=== PATIENT | female | born 1955 | race Caucasian/White ===

== ENCOUNTER → 2024-03-12 08:48 | Outpatient (REF) | payer MEDICARE, OTHER, SELFPAY | LOC: WDC 08:48 | PROVIDERS: ATTENDING PHYSICIAN Family Medicine | DX: R92.2 Inconclusive mammogram (principal) | CPT/HCPCS: 76641 ==

== ENCOUNTER 2024-04-16 18:37 | Emergency (ER) | payer MEDICARE, OTHER, SELFPAY ==
[2024-04-16 18:39] VITALS: BP 202/90
[2024-04-16 19:04] LABS: % Basophils 1.2 % (0-2); % Eosinophils 4.8 % (0-6); % Immature Granulocytes 0.2 % (0-0.5); % Lymphocytes 45.3 % (20.5-51.1); % Monocytes 9.9 % (1.7-9.3); % Neutrophils 38.6 % (42.2-75.2); Absolute Basophils 0.1 10^3/uL (0-0.2); Absolute Eosinophils 0.4 10^3/uL (0-0.7); Absolute Lymphocytes 3.8 10^3/uL (1.2-3.4); Absolute Monocytes 0.8 10^3/uL (0.1-0.6); Absolute Neutrophils 3.2 10^3/uL (1.4-6.5); Hematocrit 49.2 % (37.0-47.0); Mean Corp Hgb Conc. 32.5 g/dL (33.0-37.0); Mean Corpuscular Hgb 26.2 pg (27.0-31.0); Mean Corpuscular Volume 80.5 fL (81.0-99.0); Mean Platelet Volume 11.8 fL (7.4-10.4); Nucleated Red Blood Cells % 0 %; Platelet Count 219 10^3/uL (130-400); Red Blood Cell Count 6.11 10^6/uL (4.20-5.40); Red Cell Dist. Width 13.4 % (11.5-14.5); White Blood Cell Count 8.3 10^3/uL (4.8-10.8)
[2024-04-16 19:28] LABS: ALT (SGPT) 28 U/L (0-35); AST (SGOT) 45 U/L (14-36); Albumin 5.3 g/dl (3.5-5.0); Alkaline Phosphatase 66 U/L (38-126); Blood Urea Nitrogen 25 mg/dl (7-17); Calcium 10.3 mg/dl (8.4-10.2); Carbon Dioxide 27 mmol/L (22-30); Chloride 102 mmol/L (98-107); Glucose 100 mg/dl (70-99); Potassium 4.3 mmol/L (3.5-5.1); Sodium 144 mmol/L (135-145); Total Bilirubin 0.7 mg/dl (0.2-1.3); Total Protein 8.4 g/dl (6.3-8.2); eGFR > 60.00
[2024-04-16 19:38] LABS: Troponin I < 0.012 ng/ml
[2024-04-16 20:44] VITALS: BP 155/73
[2024-04-16 21:00] VITALS: BP 144/73
[2024-04-16 21:24] VITALS: BMI 28.2
[2024-04-16 22:00] VITALS: BP 138/65
--- NOTE | 2024-04-16 22:41 | ED.GENMED ---
History of Present Illness
General
Chief Complaint: Heart Rate Problem
Source: patient and spouse
Exam Limitations: none
Time Seen by Provider: 04/16/24 21:34
Nursing documentation reviewed up to this point in time: agreed with
History of Present Illness
History of Present Illness:
Patient is a 68-year-old female with history hyperlipidemia presenting to the emergency department for evaluation of palpitations and associated shortness of breath. Patient states that she was walking in the grocery store around 530 tonight when
she felt a pressure in her mid chest. She states that she 'just did not feel'. She does endorse some associated shortness of breath. Patient denies any headache, dizziness/lightheadedness, back pain, numbness/tingling lower extremities, or
weakness. Patient checked her 'monitor 'at home which stated that she was in an irregular heartbeat. She came to the emergency department for further evaluation.
By my initial evaluation patient states that she is feeling back to her baseline. She is currently asymptomatic and denies any current complaints. No longer describes any chest pain, shortness of breath. Patient states symptoms lasted about 3
hours tonight.
Patient states that she had 1 very similar episode in February which resolved on its own within 4 hours. Her primary care was aware of this instance for she had a normal EKG.
Patient has never seen a manager of environmental services
Review of Systems
Review of Systems
Allergies reviewed?: Yes
All Other Systems: ROS reviewed and negative except as documented in HPI and ROS
Phy Exam
Physical Exam
Physical Exam:
Vitals: Hypertensive, tachycardic on arrival although normalized by my initial evaluation
General: Patient is well appearing, no acute distress. Nontoxic-appearing
Skin: Warm and dry, no rashes or lesions
Head: Normocephalic, atraumatic
Eyes: Sclera nonicteric. EOMs intact. No nystagmus.
Throat: Protecting airway.
Neck: Normal ROM, no cervical spine tenderness, no meningismus. No JVD
Cardiac: Regular rate and rhythm, no murmurs. Palpable and equal distal pulses in bilateral upper and lower extremities.
Pulm: Normal respiratory effort, no wheezes, rales, rhonchi heard on exam. In no apparent respiratory stress. Oxygen saturation 98 on room air
Abdomen: Nondistended.
Extremities: No pitting edema bilateral lower extremities. Great distal pulses in bilateral lower extremities.
Neuro: AAOx3. No focal neurologic deficits. Speech fluid.
Psychiatric: Normal affect.
Scores
[id number] Score for Afib Stroke Risk
Age in Years (65=0, 65-74=1, >/=75=2): 65-74
Sex (Female=+1): Female
Congestive Heart Failure History (Yes=+1): No
Hypertension History (Yes=+1): Yes
Stroke/TIA/Thromboembolism History (Yes=+2): No
Vascular Disease History (Yes=+1): No
Diabetes Mellitus (Yes=+1): No
Score: 3
Anticoagulation Recommendations: Recommend anticoagulation (as validated in nonvalvular fib)
Course
Orders/Labs/Results
Orders:
Orders
04/16/24 18:38
ECG [Electrocardiogram (*1)] Urgent
Reason for Study: Tachycardia
Electrocardiogram (*1) Urgent
Reason for Study: Shortness of Breath
EKG- Treatment ONCE
04/16/24 18:39
EKG- Treatment ONCE
04/16/24 18:54
TSH Reflex To Free T4 Urgent
Comment: ADD ON
04/16/24 18:56
Complete Blood Count/With Diff Urgent
Comprehensive Metabolic Panel Urgent
Troponin I Urgent
04/16/24 22:27
Add On- LAB Urgent
Tests Added?: TSH w/ reflex to T4
Electrocardiogram (*1) Urgent
Reason for Study: Palpitations
EKG- Treatment ONCE
04/16/24 23:22
Apixaban [Eliquis] 5 mg PO NOW STA
Metoprolol Xl [Toprol Xl] 25 mg PO NOW STA
04/16/24 23:38
Metoprolol Xl [Toprol Xl] 12.5 mg PO NOW STA
Abnormal Lab Results
04/16/24
18:56
RBC 6.11 H 10^6/uL
(4.20-5.40)
Hct 49.2 H %
(37.0-47.0)
MCV 80.5 L fL
(81.0-99.0)
MCH 26.2 L pg
(27.0-31.0)
MCHC 32.5 L g/dL
(33.0-37.0)
MPV 11.8 H fL
(7.4-10.4)
Absolute Lymphs (auto) 3.8 H 10^3/uL
(1.2-3.4)
Absolute Monos (auto) 0.8 H 10^3/uL
(0.1-0.6)
Neutrophils % 38.6 L %
(42.2-75.2)
Monocytes % 9.9 H %
(1.7-9.3)
BUN 25 H mg/dl
(7-17)
Glucose 100 H mg/dl
(70-99)
Calcium 10.3 H mg/dl
(8.4-10.2)
AST 45 H U/L
(14-36)
Total Protein 8.4 H g/dl
(6.3-8.2)
Albumin 5.3 H g/dl
(3.5-5.0)
04/16/24 18:56
04/16/24 18:56
Vital Signs
Initial and Last Documented VS:
Initial Vital Signs
Temp Pulse Resp BP Pulse Ox
98.1 F 139 16 202/90 98
04/16/24 18:39 04/16/24 18:39 04/16/24 18:39 04/16/24 18:39 04/16/24 18:39
Last Documented Vital Signs
Temp Pulse Resp BP Pulse Ox
98.1 F 61 16 140/66 98
04/16/24 18:39 04/16/24 23:47 04/16/24 23:15 04/16/24 23:47 04/16/24 18:39
MDM/Problems Addressed
Differential Diagnosis Includes:
Not limited to: Paroxysmal atrial fibrillation, other cardiac arrhythmia, hypothyroidism, doubt ACS
MDM/Problems Addressed:
68-year-old female presenting with acute onset chest discomfort, shortness of breath while in grocery store approximately 3 hours prior to arrival and found to be in atrial fibrillation with rapid ventricular response on arrival to emergency
department. Patient fortunately did convert back to normal sinus rhythm by my initial evaluation. She is asymptomatic at this time with no current complaints. Patient specifically denies any chest pain, shortness of breath,/lightheadedness,
headache, numbness/tingling/weakness in lower extremities. Patient with no known history of atrial fibrillation, not currently anticoagulated. Labs were obtained in triage which showed no acute abnormalities. Troponin was normal which was drawn
3.5 hours status post initial onset of symptoms�do not suspect ACS. Patient denies any chest discomfort at this time whatsoever.
Did repeat EKG which confirms normal sinus rhythm with a rate of 60bpm and no acute ischemic changes. A TSH was added on given patient's new onset atrial fibrillation which was normal. Patient has a [id number] score of 3�indicating
recommendation for anticoagulation. Lengthy discussion with patient and patient's regarding risk versus benefit of oral anticoagulation given paroxysmal atrial fibrillation. Utilize shared decision-making and will initiate oral
anticoagulation therapy today. Given patient's heart rate ranging in the 60s�will start very low-dose metoprolol 12.5 mg daily. Advised patient to hold medication with any low heart rate readings. Return precautions discussed at length with
patient. Patient has been placed on chest pain hotline and will follow close with cardiology. In addition�she will follow with primary care early next week. Patient and patient's comfortable with discharge. All questions answered. Case
discussed with attending physician.
Chronic conditions affecting care:
Hyperlipidemia
Acute Exacerbation and/or Progression of Chronic Illness:
Paroxysmal atrial fibrillation
*Pulse Oximetry
Patient hypoxic: no
*EKG
Interpreted by ED Provider?: Yes
EKG Intrepretation Date: 04/17/24
Interpretation: abnormal
Comparison EKG: changes noted
Heart Rate: 143
Rate: tachycardiac
Rhythm: a-fib
[place]: normal axis
Interval: normal interval
QRS Pattern: normal QRS
Ischemia: non-specific ST changes
*Special Education Assistant Interpretation
Rate: normal
Interpretation: normal
Heart Rate: 68
Rhythm: sinus
*Critical Care Note
Total Time (30-74mins, 75-104mins- exclusive of procedures): Not Applicable
ED Attending Note
-
Portions of this chart may have been created with voice recognition software.� Occasional wrong word or��sound alike� substitutions may have occurred due to the inherent limitations of voice recognition software.
Discharge Plan
Departure
Patient Disposition: Home (Routine Discharge)
Date of Disposition: 04/16/24
Time of Disposition: 23:24
Patient with high blood pressure during this ER visit?: Yes
Condition: Good
Covid-19: Not Applicable
Discharge Problem:
Paroxysmal atrial fibrillation
Instructions: Atrial Fibrillation (DC), Apixaban, Chest Pain DCA Follow Up, BLOOD PRESSURE
Prescriptions:
New
Eliquis 5 mg tablet
5 mg PO BID 30 Days Qty: 60 0RF
metoprolol succinate 25 mg tablet extended release 24 hr
12.5 mg PO DAILY 30 Days Qty: 15 0RF
Referrals:
Jony Vaz MD [Active] - Next open appointment
Aleta Mobley MD [Family Provider] -
Activity Restrictions/Additional Instructions:
RETURN TO THE EMERGENCY DEPARTMENT WITH ANY CHEST PAIN, SHORTNESS OF BREATH, PALPITATIONS, DIZZINESS/LIGHTHEADEDNESS, HEADACHE, ALTERED MENTAL STATUS, VISUAL CHANGES, BLEEDING, OR ANY OTHER CONCERNS
-As discussed�it is important that you take your Eliquis daily and do not miss doses. This will cause blood thinning and you should monitor for any signs of bleeding. If you have any trauma while on Eliquis you should be seen by healthcare
provider. Both prescriptions have been sent to your pharmacy.
-You should stay well-hydrated. Take it easy over the next few days. Follow-up with cardiology as soon as possible for further evaluation/management.
-You should be seen by your primary care early next week for further evaluation.
Monitor your symptoms closely and return to the emergency department with any acute worsening/new symptoms.
Interventions
Interventions:
*Risk Screen - Suicide Last Done: 04/16/24 18:39
*General Assessment Last Done: 04/16/24 18:39
*Neglect/Abuse Screening Last Done: 04/16/24 18:39
ED- Fall Risk Assessment Last Done: 04/16/24 21:24
*ED COVID-19 Vaccine History Last Done: 04/16/24 18:39
*Nursing Disposition Last Done: 04/16/24 23:54
ED- Cardiac Assessment Last Done: 04/16/24 21:24
ED- Pulmonary Assessment Last Done: 04/16/24 21:24
Discharge Date and Time
Discharge Date/Time: 04/16/24 23:54
Print Language: PASHTO
[2024-04-16 23:00] VITALS: BP 140/66
[2024-04-16] MEDS: TOPROL XL 12.5 MG PO (23:47)
[2024-04-16] MEDS: ELIQUIS 5 MG PO (23:48)
== END 2024-04-16 23:54 | disposition home or self-care (01) ==
LOC: EMR 18:37
PROVIDERS: Physician Assistant; EMERGENCY PHYSICIAN Student in an Organized Health Care Education/Training Program; FAMILY PHYSICIAN Family Medicine
DX: I48.0 Paroxysmal atrial fibrillation (principal); E78.00 Pure hypercholesterolemia, unspecified; Z79.01 Long term (current) use of anticoagulants; Z79.899 Other long term (current) drug therapy
CPT/HCPCS: 99283; 80053; 84443; 84484; 85025; 93005

== ENCOUNTER → 2024-05-19 09:53 | Outpatient (REF) | payer MEDICARE, OTHER, SELFPAY | LOC: RCS 09:53 | PROVIDERS: ATTENDING PHYSICIAN Nuclear Medicine Nuclear Cardiology; FAMILY PHYSICIAN Family Medicine | DX: I48.91 Unspecified atrial fibrillation (principal); R94.31 Abnormal electrocardiogram [ECG] [EKG]; R07.9 Chest pain, unspecified | CPT/HCPCS: 93017; 93350 ==

== ENCOUNTER → 2024-06-07 10:09 | Outpatient (REF) | payer MEDICARE, OTHER, SELFPAY | LOC: RCS 10:09 | PROVIDERS: ATTENDING PHYSICIAN Nuclear Medicine Nuclear Cardiology; FAMILY PHYSICIAN Family Medicine | DX: I48.91 Unspecified atrial fibrillation (principal); R94.31 Abnormal electrocardiogram [ECG] [EKG]; R07.9 Chest pain, unspecified | CPT/HCPCS: 93306 ==

== ENCOUNTER → 2024-08-23 12:27 | Outpatient (REF) | payer MEDICARE, OTHER, SELFPAY | LOC: WDC 12:27 | PROVIDERS: ATTENDING PHYSICIAN Family Medicine | DX: Z12.31 Encounter for screening mammogram for malignant neoplasm of breast (principal) | CPT/HCPCS: 77063; 77067 ==

== ENCOUNTER → 2024-09-10 13:47 | Outpatient (REF) | payer MEDICARE, OTHER, SELFPAY | LOC: WDC 13:47 | PROVIDERS: ATTENDING PHYSICIAN Family Medicine | DX: R92.8 Other abnormal and inconclusive findings on diagnostic imaging of breast (principal) | CPT/HCPCS: 76642 ==

== ENCOUNTER → 2024-10-05 12:29 | Outpatient (REF) | payer MEDICARE, OTHER, SELFPAY | LOC: RAD 12:29 | PROVIDERS: ATTENDING PHYSICIAN Internal Medicine Rheumatology; FAMILY PHYSICIAN Family Medicine | DX: M81.0 Age-related osteoporosis without current pathological fracture (principal) | CPT/HCPCS: 77080 ==

== ENCOUNTER → 2025-03-08 09:53 | Outpatient (REF) | payer MEDICARE, OTHER, SELFPAY | LOC: WDC 09:53 | PROVIDERS: ATTENDING PHYSICIAN Family Medicine | DX: R92.2 Inconclusive mammogram (principal) | CPT/HCPCS: 76641 ==

== ENCOUNTER 2025-03-16 21:25 | Emergency (ER) | payer MEDICARE, OTHER, SELFPAY ==
[2025-03-16 21:37] VITALS: BP 174/74
[2025-03-16 21:54] LABS: Hematocrit 43.9 % (37.0-47.0); Hemoglobin 14.3 g/dL (12.0-16.0); Mean Corp Hgb Conc. 32.6 g/dL (33.0-37.0); Mean Corpuscular Volume 80.6 fL (81.0-99.0); Nucleated Red Blood Cells % 0 %; Platelet Count 210 10^3/uL (130-400); Red Cell Dist. Width 13.6 % (11.5-14.5)
[2025-03-16 22:08] LABS: ALT (SGPT) 23 U/L (0-35); AST (SGOT) 28 U/L (14-36); Albumin 4.7 g/dl (3.5-5.0); Alkaline Phosphatase 55 U/L (38-126); Blood Urea Nitrogen 17 mg/dl (7-17); Calcium 8.9 mg/dl (8.4-10.2); Carbon Dioxide 27 mmol/L (22-30); Chloride 104 mmol/L (98-107); Glucose 135 mg/dl (70-99); Potassium 4.0 mmol/L (3.5-5.1); Sodium 138 mmol/L (135-145); Total Protein 7.2 g/dl (6.3-8.2); eGFR > 60.00
[2025-03-16 22:19] LABS: Troponin I < 0.012 ng/ml
[2025-03-16 23:25] VITALS: BMI 26.5
[2025-03-16 23:29] VITALS: BP 154/71
[2025-03-17] VITALS: BP 144/60; BP 144/66
[2025-03-17 01:00] VITALS: BP 141/82
--- NOTE | 2025-03-17 01:12 | ED.GENMED ---
History of Present Illness
General
Chief Complaint: Cardiac Symptoms
Source: patient and previous hospital records (ED visit March 2024 for similar palpitations, noted to have A-fib with rapid ventricular response. Spontaneously converted to normal sinus rhythm.)
Exam Limitations: none
Time Seen by Provider: 03/17/25 00:48
Nursing documentation reviewed up to this point in time: agreed with
History of Present Illness
History of Present Illness:
The patient is a 69-year-old female with a history of atrial fibrillation diagnosed last year during ED visit March 2024 when she presented with similar palpitations. A-fib spontaneously converted to normal sinus rhythm. She was started on
Eliquis as well as metoprolol during that ED visit. She has since followed up with cardiology, Dr. Johnson and underwent unremarkable echocardiogram, stress test. She remained asymptomatic and was recommended to discontinue Eliquis and metoprolol in
July.
However, she began experiencing episodes again starting in January, approximately a month ago. Since then, she has had several episodes, with the most recent prior episode occurring on the of this month. The episodes typically last a few hours,
with the most recent episode lasting over two hours. She recently wore a school lunch monitor for a week starting February 17, but she had no episodes of palpitations while wearing Holter monitor. When using her personal device, [employer], the readings
have been 'unclassified,' and a recent heart rate was recorded at 132 beats per minute. She notes that the heart rate drops back down to the 50s, with her baseline usually in the 60s. She reports intermittent episodes of dizziness, brief in nature,
that is not associated with palpitations.
The patient attempts to manage her diet by avoiding caffeine but occasionally consumes iced tea and other likely caffeinated drinks. She has experienced increased urination during these episodes of palpitations. The patient also reported a history
of low heart rates, sometimes in the 50s, which she is monitoring at home with regular blood pressure measurements, generally controlled without current medications. She reports walking about two miles, occasionally in the morning.
The patients [facility] administrator, Dr. Johnson, has previously recommended a [id number] approach during episodes, but the patient is advised now to seek immediate evaluation next time to capture the arrhythmia on an Electrocardiogram (EKG) for
confirmation. The patient has a [id number] score of 2, based on age and gender, which merits consideration for anticoagulation therapy.
Past History
Past History
ED Past Medical History: Arrthythmia (Paroxysmal atrial fibrillation, initially diagnosed March 2024), Hypercholesterolemia and Other (Seasonal allergies; osteoporosis)
ED Past Surgical History: Tonsilectomy
Social History
Tobacco: Non-smoker
Alcohol: None
Drug: None
Personal:
Living: with family
Employment: Retired
Family History
Family History: Other (Noncontributory)
Phy Exam
Physical Exam
Physical Exam:
General: Alert, no acute distress.
Skin: Warm, dry.
Head: Normocephalic, atraumatic.
Neck: Supple, trachea midline.
Eye Ears, nose, mouth and throat: Oral mucosa moist.
Cardiovascular: Normal peripheral perfusion, No edema. Regular rate and rhythm. No murmur nor rub.
Respiratory: Respirations are non-labored.
Gastrointestinal: Abdomen nondistended.
Back: Normal range of motion, Normal alignment.
Musculoskeletal: Normal range of motion, normal strength.
Neurological: Alert and oriented to person, place, time, and situation, No focal neurological deficit observed.
Psychiatric: Cooperative, appropriate mood & affect.
Scores
[id number] Score for Afib Stroke Risk
Age in Years (65=0, 65-74=1, >/=75=2): 65-74
Sex (Female=+1): Female
Congestive Heart Failure History (Yes=+1): No
Hypertension History (Yes=+1): No
Stroke/TIA/Thromboembolism History (Yes=+2): No
Vascular Disease History (Yes=+1): No
Diabetes Mellitus (Yes=+1): No
Score: 2
Anticoagulation Recommendations: Recommend anticoagulation (as validated in nonvalvular fib)
Course
Orders/Labs/Results
Orders:
Orders
03/16/25 21:25
ECG [Electrocardiogram (*1)] Urgent
Reason for Study: Palpitations
EKG- Treatment ONCE
03/16/25 21:48
Complete Blood Count/With Diff Urgent
Comprehensive Metabolic Panel Urgent
Troponin I Urgent
Abnormal Lab Results
03/16/25
21:48
RBC 5.45 H 10^6/uL
(4.20-5.40)
MCV 80.6 L fL
(81.0-99.0)
MCH 26.2 L pg
(27.0-31.0)
MCHC 32.6 L g/dL
(33.0-37.0)
Absolute Lymphs (auto) 3.5 H 10^3/uL
(1.2-3.4)
Absolute Monos (auto) 0.8 H 10^3/uL
(0.1-0.6)
Neutrophils % 36.2 L %
(42.2-75.2)
Monocytes % 10.2 H %
(1.7-9.3)
Glucose 135 H mg/dl
(70-99)
03/16/25 21:48
03/16/25 21:48
Vital Signs
Initial and Last Documented VS:
Initial Vital Signs
Temp Pulse Resp BP Pulse Ox
98.3 F 65 18 174/74 98
03/16/25 21:37 03/16/25 21:37 03/16/25 21:37 03/16/25 21:37 03/16/25 21:37
Last Documented Vital Signs
Temp Pulse Resp BP Pulse Ox
98.3 F 59 19 144/60 99
03/16/25 21:37 03/17/25 00:00 03/17/25 00:00 03/17/25 00:00 03/17/25 00:00
MDM/Problems Addressed
Differential Diagnosis Includes:
The Differential Diagnosis includes, in no particular order and is not limited to:
1. Atrial fibrillation
2. Atrial flutter
3. Supraventricular tachycardia
4. PVCs (Premature Ventricular Contractions)
5. Cardiac arrhythmia secondary to electrolyte imbalance
6. Hyperthyroidism
7. Anxiety-induced palpitations
8. Paroxysmal supraventricular tachycardia
9. Structural heart disease
10. Sick sinus syndrome
MDM/Problems Addressed:
- Acute: Palpitations, possible atrial fibrillation.
- Chronic: Eczema being managed with topical steroids.
Chronic conditions affecting care: Arrhythmia (History of PAF)
Acute Exacerbation and/or Progression of Chronic Illness: Arrhythmia
*Pulse Oximetry
SaO2: 99
Oxygen Mode of Delivery: Room air
Patient hypoxic: no
*EKG
Interpreted by ED Provider?: Yes
Interpretation: normal
Comparison EKG: no changes (Unchanged from previous March 2024)
Rate: normal
Rhythm: sinus
[place]: normal axis
Interval: normal interval
QRS Pattern: normal QRS
Ischemia: no ischemia
*Wood Heel Flap Trimmer Interpretation
Rate: normal
Interpretation: normal
Rhythm: sinus
*Critical Care Note
Total Time (30-74mins, 75-104mins- exclusive of procedures): Not Applicable
Update Note
Update Note:
I highly suspect palpitations are A-fib in nature. Unfortunately resolved prior to obtaining EKG.
She remains in normal sinus rhythm, sinus bradycardia and remains hemodynamically stable.
Labs are unremarkable.
Thyroid function normal last March. Will add TSH to the blood in the lab for completeness sake.
[id number] or of 2 thus would recommend long-term anticoagulation however recommend she discuss this with her [facility] administrator.
Will discharge to home but recommend if palpitations recur, prompt return to the ED in hopes that arrhythmia can be captured on EKG prior to spontaneous conversion.
Encouraged to avoid caffeinated beverages, avoid chocolate.
ED Attending Note
-
Portions of this chart may have been created with voice recognition software.� Occasional wrong word or��sound alike� substitutions may have occurred due to the inherent limitations of voice recognition software.
Discharge Plan
Departure
Patient Disposition: Home (Routine Discharge)
Date of Disposition: 03/17/25
Time of Disposition: 01:12
Patient with high blood pressure during this ER visit?: No
Condition: Good
Discharge Problem:
Heart palpitations, Concern for paroxysmal a fibrillation
Instructions: Atrial fibrillation, Heart Palpitations
Prescriptions:
No Action
rosuvastatin 5 mg Tablet
5 mg PO . WITH DINNER
Prolia 60 mg/mL Syringe
60 mg SC [id number]
Triamcinolon Cream
1 dose topical DAILY PRN (Reason: eczema)
loratadine [Claritin] 10 mg Tablet
10 mg PO DAILY PRN (Reason: itching)
Referrals:
Cuba Johnson, DO [Active, Cardiology] - Call in 1-3 days for appt
UNKNOWN - PT DOES,NOT KNOW [Family Provider]
Activity Restrictions/Additional Instructions:
Discontinue caffeinated beverages as well as discontinue chocolate/cocoa.
Stay well-hydrated on a daily basis.
Follow-up with your [facility] administrator for further evaluation.
If palpitations recur, prompt return to the ED for reevaluation.
Interventions
Interventions:
*Risk Screen - Suicide Last Done: 03/16/25 21:37
*General Assessment Last Done: 03/16/25 21:37
*Neglect/Abuse Screening Last Done: 03/16/25 21:37
*ED- Fall Risk Assessment Last Done: 03/16/25 21:37
*ED COVID-19 Vaccine History Last Done: 03/16/25 21:37
ED- Pulmonary Assessment Last Done: 03/16/25 23:25
ED- Cardiac Assessment Last Done: 03/16/25 23:25
Discharge Date and Time
Print Language: CROATIAN
== END 2025-03-17 01:20 | disposition home or self-care (01) ==
LOC: EMR 21:25
PROVIDERS: Emergency Medicine; EMERGENCY PHYSICIAN Emergency Medicine
DX: R00.2 Palpitations (principal); I48.0 Paroxysmal atrial fibrillation; E78.00 Pure hypercholesterolemia, unspecified; L30.9 Dermatitis, unspecified
CPT/HCPCS: 99284; 80053; 84484; 85025; 93005